=== PATIENT | male | born 2000 | race Hispanic/Latino ===

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

== ENCOUNTER 2023-02-19 00:08 | Emergency (ER) | payer SELFPAY | END 2023-02-19 02:49 | disposition home or self-care (01) | LOC: ERS 00:08 | DX: M54.9 Dorsalgia, unspecified (principal) | CPT/HCPCS: 99283 ==